=== PATIENT | male | born 1990 | race Caucasian/White ===

== ENCOUNTER 2025-04-30 16:45 | Outpatient (OUT) | payer OTHER, SELFPAY ==
[2025-04-30 17:11] LABS: Glucose Urine UA >=1000 mg/dL (NEGATIVE)
== END 2025-04-30 16:46 | disposition home or self-care (01) ==
PROVIDERS: PCP Family Medicine; Visit Provider Family Medicine
DX: R31.9 Hematuria, unspecified (principal); E11.9 Type 2 diabetes mellitus without complications
CPT/HCPCS: 81003; 82043; 82570